=== PATIENT | male | born 1960 | race Caucasian/White ===

== ENCOUNTER → 2024-09-22 10:31 | Outpatient (REF) | payer BC, SELFPAY | LOC: DHSLP 10:31 | PROVIDERS: ATTENDING PHYSICIAN Internal Medicine; FAMILY PHYSICIAN Student in an Organized Health Care Education/Training Program | DX: G47.33 Obstructive sleep apnea (adult) (pediatric) (principal) | CPT/HCPCS: 95800 ==

== ENCOUNTER → 2024-11-19 12:31 | Outpatient (REF) | payer BC, SELFPAY | LOC: HWRAD 12:31 | PROVIDERS: ATTENDING PHYSICIAN Student in an Organized Health Care Education/Training Program | DX: R22.2 Localized swelling, mass and lump, trunk (principal) | CPT/HCPCS: 76604 ==

== ENCOUNTER 2025-06-20 12:08 | Emergency (ER) | payer BC, SELFPAY ==
[2025-06-20 12:11] VITALS: BP 152/96
--- NOTE | 2025-06-20 12:52 | ED.GENMED ---
History of Present Illness
General
Chief Complaint: Abdominal Pain
Source: patient
Time Seen by Provider: 06/20/25 12:39
History of Present Illness
History of Present Illness:
64-year-old male with past medical history of hyperlipidemia presenting to the emergency department with 1 day of left lower quadrant abdominal pain described to be a dull aching sensation, gradual in onset, nonradiating, somewhat worse today
prompting him to come to the ER. He reports no change to oral intake to solids or liquids. He denies any fevers, chills, rigors, urinary symptoms. He does report that yesterday he felt an urge that he had to defecate but states when he went to do
so he only had a little bit. No history of similar. Last colonoscopy about 2 years ago where he reports some polyps were removed but was otherwise unremarkable. Surgical history noncontributory. Social history also noncontributory.
Past History
Past History
ED Past Medical History: Hypercholesterolemia
ED Past Surgical History: None
Social History
Tobacco: Non-smoker
Alcohol: Occasional
Drug: None
Personal:
Living: with family
Review of Systems
Review of Systems
All Other Systems: ROS reviewed and negative except as documented in HPI and ROS
Phy Exam
Physical Exam
Physical Exam:
GENERAL: Alert , in no apparent distress
EYE: clear conjunctiva b/l
HEAD: NCAT
ENT: mmm.
CARDIAC: Regular rate and rhythm .
LUNGS: Clear breath sounds bilaterally, no acute respiratory distress, no wheezes/rales/rhonchi
ABDOMEN: Soft, left lower quadrant abdominal tenderness, no r/g, no cvat, negative Miller sign, no tenderness at McBurney's point
NEUROLOGICAL: Alert and oriented
SKIN: Warm and dry, skin intact.
MUSCULOSKELETAL: well perfused.
PSYCH: Normal and appropriate interaction.
Scores
Heart Failure Risk
Heart Failure Risk Score: Not Applicable
Heart Score for Chest Pain Patients
STEMI patient?: Not applicable
Withdrawal Assessment of Alcohol
Withdrawal Assessment Completed?: Not applicable
Course
Orders/Labs/Results
Orders:
Orders
06/20/25 12:41
CT Abd/pelvis W Iv Cont Urgent
Comment:
Reason For Exam: LLQ abd pain
06/20/25 13:14
Comprehensive Metabolic Panel Urgent
Lipase Urgent
06/20/25 13:15
Complete Blood Count/With Diff Urgent
Urinalysis Reflex To Culture Urgent
Date Specimen was Collected: 06/20/25
Time Specimen was Collected: 12:41
Urine Microscopic Reflex Cult Urgent
06/20/25 13:45
Ketorolac [Toradol] 30 mg IV NOW STA
06/20/25 15:37
Cefdinir [Omnicef] 300 mg PO NOW STA
Abnormal Lab Results
06/20/25 06/20/25
13:14 13:15
WBC 12.8 H 10^3/uL
(4.8-10.8)
RBC 4.43 L 10^6/uL
(4.70-6.10)
MCH 31.8 H pg
(27.0-31.0)
MPV 12.0 H fL
(7.4-10.4)
Absolute Neuts (auto) 9.5 H 10^3/uL
(1.4-6.5)
Absolute Lymphs (auto) 1.0 L 10^3/uL
(1.2-3.4)
Absolute Monos (auto) 0.7 H 10^3/uL
(0.1-0.6)
Absolute Eos (auto) 1.5 H 10^3/uL
(0-0.7)
Lymphocytes % 7.8 L %
(20.5-51.1)
Eosinophils % 11.3 H %
(0-6)
Creatinine 1.9 H mg/dL
(0.7-1.3)
Glucose 104 H mg/dl
(70-99)
Urine Bacteria (Reflex) Few A
(Negative)
Urine Albumin (Reflex) 1+ A
(Neg - Trace)
06/20/25 13:15
06/20/25 13:14
Vital Signs
Initial and Last Documented VS:
Initial Vital Signs
Temp Pulse Resp BP Pulse Ox
98.6 F 92 18 152/96 97
06/20/25 12:11 06/20/25 12:11 06/20/25 12:11 06/20/25 12:11 06/20/25 12:11
Last Documented Vital Signs
Temp Pulse Resp BP Pulse Ox
98.6 F 84 18 138/70 97
06/20/25 12:11 06/20/25 15:36 06/20/25 15:36 06/20/25 15:36 06/20/25 15:36
MDM/Problems Addressed
Differential Diagnosis Includes:
Diverticulitis
Renal/ureteral colic
Colitis
Urinary tract infection
Pyelonephritis
Muscle strain
Constipation
MDM/Problems Addressed:
64-year-old male presenting to the emergency department for evaluation of left lower quadrant abdominal pain that began yesterday, worse today. Patient describes tenesmus yesterday. Afebrile here and in no acute distress but does have a tender
left lower quadrant. Declines anything for pain. Labs and CT imaging ordered. Reassessment following.
*Radiology
Radiology exam reviewed: radiology read reviewed
*Pulse Oximetry
SaO2: 97
Oxygen Mode of Delivery: Room air
Patient hypoxic: no
*Critical Care Note
Total Time (30-74mins, 75-104mins- exclusive of procedures): Not Applicable
Patient Management
Discussion with other providers: PCP
Escalation/DeEscalation of care consider admission/obs:
Patient's lab findings noted mild. Patient reports that at his annual physical earlier in the year he did have slightly elevated renal function, had this repeated and normalized, thought his function was mildly elevated to perform a few labs while
fasting. Patient's CT scan was noted for mild left perinephric stranding fullness of the left collecting system but without any stones identified. There is diffuse bladder wall second as well. Urinalysis without any obvious signs of infection.
Will cover for urinary tract infection with Omnicef. I did discussed with patient if he had any concern for sexually transmitted infection but patient states he does not have any concerns at this time nor symptoms including urethral discharge,
lesions or sores, dysuria, testicular edema or erythema. I did notify patient's primary care provider via [place] text about his abnormal renal function and that he would need repeat blood work, PCP will ensure patient has follow-up and gets this
repeat labs performed
ED Attending Note
-
Portions of this chart may have been created with voice recognition software.� Occasional wrong word or��sound alike� substitutions may have occurred due to the inherent limitations of voice recognition software.
Discharge Plan
Departure
Patient Disposition: Home (Routine Discharge)
Date of Disposition: 06/20/25
Time of Disposition: 15:38
Patient with high blood pressure during this ER visit?: Yes
Discharge Problem:
Abdominal pain, AMRIK (acute kidney injury)
Instructions: Abdominal Pain
Prescriptions:
New
cefdinir 300 mg capsule
300 mg PO BID Qty: 13 0RF
Referrals:
Shantel Rowan MD [Family Provider, Internal Medicine]
Interventions
Interventions:
*Risk Screen - Suicide Last Done: 06/20/25 12:11
*General Assessment Last Done: 06/20/25 12:11
*Neglect/Abuse Screening Last Done: 06/20/25 12:11
*ED- Fall Risk Assessment Last Done: 06/20/25 12:11
*Nursing Disposition Last Done: 06/20/25 15:46
JC-Pmxayf-Tznckmotlt Assessment Last Done: 06/20/25 12:26
Discharge Date and Time
Discharge Date/Time: 06/20/25 15:47
Print Language: CAMEROONIAN
[2025-06-20 13:23] VITALS: BP 148/78
[2025-06-20 13:29] LABS: Hematocrit 41.6 % (39.0-52.0); Hemoglobin 14.1 g/dL (13.0-18.0); Mean Corp Hgb Conc. 33.9 g/dL (33.0-37.0); Mean Corpuscular Volume 93.9 fL (80.0-94.0); Nucleated Red Blood Cells % 0 % (-); Platelet Count 134 10^3/uL (130-400); Red Cell Dist. Width 12.8 % (11.5-14.5)
[2025-06-20 13:31] LABS: Urine Character Clear (Clear)
[2025-06-20 13:46] LABS: Urine Red Blood Cell 0-2 /HPF (0-2); Urine Squamous Cell 0-2 /LPF (Few)
[2025-06-20 13:49] LABS: ALT (SGPT) 22 U/L (0-50); AST (SGOT) 25 U/L (17-59); Albumin 4.4 g/dl (3.5-5.0); Alkaline Phosphatase 82 U/L (38-126); Blood Urea Nitrogen 20 mg/dl (9-20); Calcium 9.7 mg/dl (8.4-10.2); Carbon Dioxide 28 mmol/L (22-30); Chloride 104 mmol/L (98-107); Glucose 104 mg/dl (70-99); Lipase 94 U/L (23-300); Potassium 4.3 mmol/L (3.5-5.1); Sodium 136 mmol/L (135-145); Total Protein 6.6 g/dl (6.3-8.2); eGFR 38.66
[2025-06-20] MEDS: TORADOL 30 MG IV (14:41)
[2025-06-20 15:36] VITALS: BP 138/70
[2025-06-20] MEDS: OMNICEF 300 MG PO (15:43)
== END 2025-06-20 15:47 | disposition home or self-care (01) ==
LOC: EMR 12:08
PROVIDERS: Physician Assistant Medical; EMERGENCY PHYSICIAN Emergency Medicine; FAMILY PHYSICIAN Student in an Organized Health Care Education/Training Program
DX: R10.9 Unspecified abdominal pain (principal); N17.9 Acute kidney failure, unspecified; E78.00 Pure hypercholesterolemia, unspecified
CPT/HCPCS: 99284; 96374; 74177; 80053; 81003; 81015; 83690; 85025; Q9967